=== PATIENT | female | born 1960 | race Caucasian/White ===

== ENCOUNTER 2018-10-27 10:35 | Emergency (ER) | payer OTHER, SELFPAY ==
[2018-10-27 10:40] VITALS: BP 154/66; PULSE 88; RESP 16; TEMP 36.6; O2SAT 96
--- NOTE | 2018-10-27 10:48 | DI.US_ITS ---
SYMPTOM/DIAGNOSIS: MEDIAL CALF REDNESS TENDERNESS. R/O CLOT RIGHT LOWER EXTREMITY ULTRASOUND: There are dilated venous varicosities seen in the medial proximal calf showing thrombus. There is an additional area in the lower medial thigh showing superficial thrombophlebitis. The deep venous system appears free of thrombus. No Hooks's cyst is seen. IMPRESSION: Superficial thrombophlebitis. No evidence of DVT
--- NOTE | 2018-10-27 10:56 | ED.GENADUL_ITS ---
Discharge Plan Disposition Patient Disposition: HOME Condition: Good Discharge Details Chief Complaint: Cellulitis Clinical Impression: Superficial thrombosis of leg Primary Care Provider: Lory,Local ED Provider: Rolando Bustos Home Meds and New Rx's Prescriptions: New cephalexin [Keflex] 500 mg capsule 500 mg PO QID 7 Days Qty: 28 RF: 0 Discharge Instructions Instructions: Superficial Thrombophlebitis (ED) Additional Instructions: You have a superficial blood clot on your leg. This is not a deep blood clot requiring anticoagulation. Please take Tylenol and Motrin for pain, please take the antibiotic as directed as there may be a small infectious component. Please use warm compress. If you notice any worsening of your symptoms, or any new symptoms such as spreading of the redness, vomiting, diarrhea, fever, chills, shortness of breath, chest pain, numbness, weakness, or fainting , please return immediately to the emergency department for reevaluation. Please follow up with your primary care provider as soon as possible for reassessment and reevaluation. As always, it was a pleasure participating in your medical care today. Medical Decision Making This is a 57-year-old female with a past medical history of asthma who presents today for evaluation of right lower calf pain. Pain began yesterday after she was bitten by some bugs. Exam demonstrates mildly indurated erythematous lesion that is roughly 4 to 5 cm on the medial aspect of the right thigh. There is some mild palpable tender cord just proximal to this. Calf is slightly more swollen compared to the left. This may certainly just be a mild superficial phlebitis, however DVT is certainly on the differential. Cellulitis is also on the differential. We will get an ultrasound to rule out for acute process. 11:49 AM Ultrasound is completed, and results per radiology reveal evidence of superficial thrombophlebitis. No evidence of deep clot. Patient remains hemodynamically stable, and in no acute distress. We will give Keflex for the questionable mild infectious component, recommend daily aspirin, NSAIDs, and close follow-up with potential ultrasound reassessment in 2 weeks if symptoms have not resolved. No clinical evidence of DVT or systemic cellulitis requiring IV antibiotics. I have extensively reviewed the treatment plan and discharge instructions with the patient and their family. I have addressed all patient concerns at this time. The patient and family was made aware of what symptoms to monitor for that would warrant a return to the emergency department. Discussed the plan with the patient and family, they demonstrate verbal understanding and agreement with our assessment and plan at this time. HPI General Date/Time Provider Initiated Documentation: 10/27/18 10:43 . HPI Narrative: This is a 57-year-old female with no significant past medical history except for asthma who presents for right calf pain. The patient states that yesterday she was outdoors and had notable bug bites over her legs, then noticed a subsequent red firm area on her medial thigh on the right lower extremity over her medial thigh. This morning she noticed some redness and continued firmness. Pain is mild. Denies DVT risk factors such as recent long car rides, immobilization, recent surgery, prior history of DVT or PE, family history of PE or DVT, morbid obesity, exogenous estrogen and smoking, hemoptysis, history of cancer. The patient denies any chest pain, shortness of breath, numbness, tingling, weakness or trauma. She denies any fever or chills. Related Data Home Medications Medication Instructions Recorded Confirmed cephalexin [Keflex] 500 mg PO QID 7 Days #28 cap 10/27/18 Previous Rx's Medication Instructions Recorded cephalexin [Keflex] 500 mg PO QID 7 Days #28 cap 10/27/18 Allergies Allergy/AdvReac Type Severity Reaction Status Date / Time No Known Allergies Allergy Unverified 10/27/18 10:42 General Stated Complaint: Cellulitis MIRIAM: 3 Review of Systems Review of Systems All systems reviewed & are unremarkable except as noted in HPI and below Exam Narrative Exam Narrative: 1.Const: Well-nourished, Well-developed, appearing stated age 2.Eyes: PERRL, no conjunctival injection, and symmetrical lids. 3.ENT: Atraumatic external nose and ears. Moist MM. Neck: Symmetric, trachea midline, No thyromegaly. 4.CVS: +S1/S2, No murmurs or gallops. Peripheral pulses 2+ and equal in all extremities. Brisk capillary refill in all extremities. 5.RESP: Unlabored respiratory effort. Clear to auscultation bilaterally. No wheezes rales or rhonchi 6.GI: Soft, Nontender/Nondistended, No hepatosplenomegaly. No guarding or rebound. 7.MSK: Normocephalic/Atraumatic, Extremities w/o deformity or ttp No cyanosis or clubbing, Normal movement of all extremities. Minimal swelling of the right lower extremity compared to the left. It is 2 cm wider in circumference. There is mildly erythematous, slightly indurated lesion on her medial thigh, there is a minimal central violaceous component. There is also a firm tender palpable cord proximal to this. No calf tenderness though. Normal movement, sensation, and +2 dorsalis pedis and posterior tibial pulses bilaterally. 8.Skin: Warm, Dry. No rashes or lesions. 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 Sensation grossly intact, no focal neurologic deficits. 10.Psych: (AAO) x3. Appropriate mood and affect Course Vital Signs Temperature 36.6 C 10/27/18 10:40 Pulse 88 10/27/18 10:40 Respiratory Rate 16 10/27/18 10:40 Blood Pressure 154/66 H 10/27/18 10:40 Pulse Oximetry 96 10/27/18 10:40 Temperature 36.6 C 10/27/18 10:40 Temperature Source Temporal Artery Scan 10/27/18 10:40 Pulse 88 10/27/18 10:40 Respiratory Rate 16 10/27/18 10:40 Blood Pressure 154/66 H 10/27/18 10:40 Blood Pressure Position Sitting 10/27/18 10:40 Pulse Oximetry 96 10/27/18 10:40 Oxygen Delivery Method Room Air 10/27/18 10:40 Oxygen Flow Rate 0 10/27/18 10:40 Pain Level 1 10/27/18 10:40
== END 2018-10-27 11:55 | disposition home or self-care (01) ==
PROVIDERS: Emergency Provider Student in an Organized Health Care Education/Training Program
DX: I80.01 Phlebitis and thrombophlebitis of superficial vessels of right lower extremity (principal); L03.115 Cellulitis of right lower limb
CPT/HCPCS: 99284; 93971; 99283